=== PATIENT | male | born 1970 | race Caucasian/White ===

== ENCOUNTER → 2020-10-28 10:25 | Outpatient (CLI) | payer OTHER, SELFPAY ==
[2020-10-28 13:08] LABS: COVID19 -Nasal RAPID Negative (Negative)
== END ==
PROVIDERS: PCP Family Medicine; Visit Provider Physician Assistant
DX: Z11.59 Encounter for screening for other viral diseases (principal)
CPT/HCPCS: 87635

== ENCOUNTER 2020-10-31 08:44 | Day surgery (SDC) | payer OTHER, SELFPAY ==
[2020-10-29 12:13] VITALS: BMI 28.8
[2020-10-31] VITALS (8 sets, daily range): BP systolic 139–149; BP diastolic 87–94; PULSE 57–69; RESP 12–20; TEMP 36.2–36.8; O2SAT 95–98; BMI 29.5
[2020-10-31] MEDS: LACTATED RINGERS 1,000 ML 100 ML IV ×2 (09:28→11:09)
[2020-10-31] MEDS: OXYMETAZOLINE NASAL SPRAY 15 ML 2 SPRAYS NASAL ×2 (09:29→10:29)
--- NOTE | 2020-10-31 09:54 | PM.PREOP ---
Pre-operative Note COVID-19 COVID-19 status: Negative Result date/Date tested (Pos, Neg/Pending): 10/28/20 Interval Note History & Physical reviewed/Exam performed by Physician: Yes Changes to H&P: No
--- NOTE | 2020-10-31 09:55 | PM.HP.1 ---
History of Present Illness History of Present Illness Date Patient Seen: 10/31/20 Time Patient Seen: 09:55 Chief complaint: YURY, SD, JEAN-PIERRE Narrative: 50-year-old male with borderline JEAN-PIERRE and chronic left greater than right nasal obstruction, septal deviation, and turbinate hypertrophy, presents for septoplasty and inferior turbinate reduction. Following discussion of the material risks benefits complications and alternatives, he elected to proceed. No interval health changes, no recent cough, cold, or fever. Patient History Medical History BCC (basal cell carcinoma) Mild sleep apnea Nasal obstruction Nasal septal deviation Family & Social History Family History Father Loud snoring Sleep apnea Restless leg Obesity Hypertension Heart disease Mother Restless leg Depression Family/Other Loud snoring Sleep apnea Obesity Hypertension Depression Social History: household members spouse,children Tobacco & Substance use: Smoking Status Never smoker alcohol intake current alcohol intake frequency a few times a week Substance Use Type does not use Meds Home Medications and Allergies Home Medications Medication Instructions Recorded Confirmed Type fluoxetine 10 mg capsule 10 mg PO DAILY 05/22/20 10/31/20 History cholecalciferol (vitamin D3) 100 mcg PO DAILY 10/31/20 10/31/20 History [Vitamin D3] vitamin E 1,000 unit PO DAILY 10/31/20 10/31/20 History Allergies Allergy/AdvReac Type Severity Reaction Status Date / Time No Known Drug Allergies Allergy Verified 10/31/20 09:08 Exam Vital Signs (past 8 hours): - 10/31/20 09:19 Temperature 98.1 F Pulse Rate 57 L Respiratory Rate 16 Blood Pressure 139/92 H Pulse Oximetry 98 Oxygen Delivery Method Room Air Assessment & Plan Assessment & Plan narrative: Assessment: Nasal airway obstruction, septal deviation, inferior turbinate hypertrophy, JEAN-PIERRE Plan: Following discussion of the material risks benefits complications and alternatives, the patient elected to proceed with septoplasty and inferior turbinate reduction.
--- NOTE | 2020-10-31 09:58 | P.OP_ITS ---
Operative Date/Time/Diagnoses Date of procedure: 10/31/20 Time of procedure: 11:42 Pre-op diagnosis: Nasal airway obstruction, septal deviation, inferior turbinate hypertrophy, JEAN-PIERRE Post-op diagnosis: same Procedure & Clinicians Procedure: 1. Septoplasty 2. Inferior turbinate reduction via intramural cautery Same procedure as scheduled: Yes Indications: 50-year-old male with the above diagnoses incompletely managed with medical therapy presents for the above procedures. Following discussion of the material risks benefits complications and alternatives, he elected to proceed. Surgeon: Brad Al Click Yes if Unassisted: Yes Anesthesia Type: General and Local Operative Notes Findings: 3+ left cartilaginous and bony septal deviation, 2 to 3+ right caudal deviation, Convoluted and old fractured dorsal and caudal strut, caudal septum presented into RIGHT nostril, columellar pocket created and caudal septum inserted. right greater than left mildinferior turbinate hypertrophy Closure Type: primary Specimen(s): none sent Estimated Blood Loss (mL): 100 Blood products transfused: none Procedure in detail: Following identification and confirmation of consent as well as preoperative Afrin nasal spray, the patient was brought to the operating room suite and placed in the supine position. General endotracheal anesthesia was administered. I infiltrated the septum widely bilaterally with 1% lidocaine 1 100,000 epinephrine followed by temporary packing with cotton with Afrin and 4% lidocaine. Following sterile prep and drape, the packing was removed and I performed a right clarisse transfixion incision, elevated the right mucoperichondrial and mucoperiosteal flap. I disarticulated near the bony cartilaginous junction and elevated the left mucoperiosteal flap. Deviated portions of the perpendicular plate of the ethmoid and vomer were resected. The residual quadrilateral cartilage was further straightened by trimming it slightly inferiorly as well as reducing the maxillary crest. A 2 mm strip of cartilage paralleling the residual 1 cm dorsal and caudal strut was resected to further straighten the quadrilateral cartilage. The fragile caudal strut, originally presenting in the RIGHT nostril, with evidence of old fracture, was s utured anteriorly within a columellar pocket I created, but remained slightly buckled superiorly requiring a 2mm area of cartilage resection. The hemitransfixion incision was closed with interrupted 5 0 chromic followed by a running 4 0 plain gut mattress suture to reapproximate the septal flaps. At case completion, th of an inch silastic splints were placed bilaterally, sutured anteriorly with a single 4 0 nylon. The head of each inferior turbinate had been previously infiltrated with additional local anesthetic and a 22 gauge spinal needle was used to impale the length of the turbinate, with cautery on a setting of 15 activated on slow withdrawal. The turbinates were then outfractured. The procedure completed, sponge and needle counts were correct and she was extubated in the operating room and taken to recovery room in stable condition without known complication. Postoperative care: Nasal saline every hour while awake, Vaseline to the nostrils at all times, begin irrigations t.i.d. beginning pod 1. Humidifier at the bedside blowing on her face. Tylenol alternating with Advil for pain control, oxycodone if necessary for breakthrough pain. Complications: none Post-operative Condition: stable Disposition: same day surgery Plan for aftercare: DC home, follow-up in 1 week for splint removal. Nasal saline every hour while awake, Vaseline to the nostrils, irrigations t.i.d. beginning tomorrow if desired. Ice to upper lip as cleopatra 48h. Tylenol and Advil for pain control, possible oxycodone for breakthrough pain.
--- NOTE | 2020-10-31 10:16 | SUR.OPER ---
Supine on padded OR bed, head on pillow, arms padded and tucked at side, legs uncrossed, safety belt at thigh, tape over blanket over lower legs .
[2020-10-31] MEDS: LIDOCAINE 1% W/EPI 20 ML INJ (10:26)
[2020-10-31] MEDS: BACITRACIN 28 GM OINT 1 APPLIC TOP (10:27)
[2020-10-31] MEDS: LIDOCAINE 4% SOLN 50 ML 20 ML TOP (10:28)
[2020-10-31] MEDS: OXYCODONE/ACETAMINOPHEN 5/325 TABLET 1 TAB PO (12:13)
[2020-10-31] MEDS: fentaNYL 100 MCG/2 ML INJ IV (12:17)
--- NOTE | 2020-10-31 12:31 | SUR.PHASEII ---
Report from alberto Ornelas 20 minutes ago. Pt received in stable condition with no nausea but requesting pain med, pain at a 7/10 and tears streaming down pts face. iv 50mcg of fentanyl given and 1 percocet po with water. . VSS, pt given all dc instructions and rx and pt verbalizes understanding.
--- NOTE | 2020-10-31 13:14 | SUR.PHASEII ---
1255-Pt up and ambulating gait steady, getting dressed now. Pt states feels much better now and ready to go home. 1305-Wheeled out to private vehicle and , all dc instructions given to as well and both verbalize understanding. Rx in with dc instructions
== END 2020-10-31 13:05 | disposition home or self-care (01) ==
PROVIDERS: PCP Family Medicine; Referring Provider Family Medicine; Visit Provider Otolaryngology
PROC: (CPT 30520; principal; 2020-10-31 09:45)
DX: J34.2 Deviated nasal septum (principal); J34.89 Other specified disorders of nose and nasal sinuses; J34.3 Hypertrophy of nasal turbinates; G47.33 Obstructive sleep apnea (adult) (pediatric)
CPT/HCPCS: 30520; 30140; A9270; J0330; J1100; J2250; J2405; J2704; J3010